=== PATIENT | male | born 1945 | race Caucasian/White ===

== ENCOUNTER 2017-04-21 08:30 | Emergency (ER) | payer MEDICARE ==
[~2017-04-21 08:30] MED LIST: ALBUTEROL INH 0.3 ML AERO NEB; AMARYL2 MG PO; ASPIR 8181 MG PO; ASPIRIN EC81 M1 PO; AVODART0.5 MG PO; BACTROBAN15 GM TP; BUMEX2 MG PO; CARVEDILOL12.5 MG PO; CELEBREX200 MG PO; CHLORASEPTIC LO1 LOZ MM; CIPRO XR500 MG PO; CIPRO250 M1 PO; COMPAZINE10 M PO; COZAAR25 MG PO; DILANTIN50 MG PO; FLOMAX0.4 MG PO; FOLIC ACID1 MG PO; GABAPENTIN100 MG PO; HUMULIN R100 U/ML SQ; HYDROCHLOROTH12.5 M1 PO; HYDROCHLOROTH12.5 MG PO; K-DUR10 ME1 PO; K-DUR20 MEQ PO; KEPPRA500 M1 PO; LANTUS100 U/ML SC; LASIX40 MG PO; LEVAQUIN750 MG PO; LEXAPRO20 MG PO; LISINOPRIL-HC PO; LISINOPRIL10 MG PO; LISINOPRIL2.5 MG PO; LORAZEPAM IM; MAGIC BULLET10 MG RC; MILK OF MA400 MG/5 M PO; MILK OF MAGNES311 MG PO; MULTI VIT PO; MYCOSTATIN100 K U/ML PO; NEURONTIN300 MG PO; NORCO 5/3251 TAB PO; NORVASC5 MG PO; PEPCID20 MG PO; PHENYTOIN PO; PHENYTOIN SODI100 PO; RA FISH OIL PO; RANITIDINE HCL150 MG PO; SENOKOT-S TABLE1 TAB PO; SIMVASTATIN20 MG PO; SIMVASTATIN40 MG PO; TRAZODONE HCL50 MG PO; TRAZODONE50 MG PO; TYLENOL500 MG PO; TYLENOL650 MG PO; ULTRAM50 MG PO; VITAMIN B12100 MCG PO; ZESTRIL20 MG PO; ZITHROMAX500 M1 PO; ZOFRAN8 MG PO; [UNRECOGNIZED DRUG - OTHER] PO; [UNRECOGNIZED DRUG - OTHER] PO; [UNRECOGNIZED DRUG - OTHER] PO; [UNRECOGNIZED DRUG - OTHER] PO; [UNRECOGNIZED DRUG - OTHER] PO
[2017-04-21] MEDS ORDERED: AVODART0.5 M1 PO (08:50)
== END 2017-04-21 10:37 ==
LOC: EDMED 08:30
PROC: 0HQ1XZZ Repair Face Skin, External Approach (ICD-10-PCS; principal; 2017-04-21)
DX: S09.90XA Unspecified injury of head, initial encounter (principal); S01.81XA Laceration without foreign body of other part of head, initial encounter; S50.312A Abrasion of left elbow, initial encounter; I10 Essential (primary) hypertension; F03.90 Unspecified dementia, unspecified severity, without behavioral disturbance, psychotic disturbance, mood disturbance, and anxiety; Z86.73 Personal history of transient ischemic attack (TIA), and cerebral infarction without residual deficits; Z86.718 Personal history of other venous thrombosis and embolism; W01.10XA Fall on same level from slipping, tripping and stumbling with subsequent striking against unspecified object, initial encounter; Y92.009 Unspecified place in unspecified non-institutional (private) residence as the place of occurrence of the external cause